=== PATIENT | female | born 1990 | race Caucasian/White ===

== ENCOUNTER 2017-11-29 11:23 | Outpatient (CLI) | payer MEDICAID | END 2017-11-29 13:57 | disposition home or self-care (01) | LOC: OBT 11:23 → L-D 11:23 → OBT 13:57 | DX: O36.8130 Decreased fetal movements, third trimester, not applicable or unspecified (principal); Z3A.37 37 weeks gestation of pregnancy | CPT/HCPCS: 76815; 76818 ==

== ENCOUNTER 2017-12-24 07:48 | Inpatient (IN) | payer MEDICAID ==
[2017-12-24] MEDS ORDERED: OXYTOCIN 30 UNITS/LR 500 ML IV ×2 (09:00→11:30)
[2017-12-24] MEDS ORDERED: BUTORPHANOL 2 MG INJ IV (09:00)
[2017-12-24] MEDS ORDERED: LIDOCAINE 1% (MPF) 30 ML INJ INJ (09:00)
[2017-12-24] MEDS ORDERED: MISOPROSTOL 200 MCG TAB PR (09:00)
[2017-12-24] MEDS ORDERED: METHYLERGONOVINE 0.2 MG INJ IM (09:00)
[2017-12-24] MEDS ORDERED: CARBOPROST 250 MCG INJ IM (09:00)
[2017-12-24] MEDS: LACTATED RINGER'S 1,000 ML IV* ×2 (09:18→11:08)
[2017-12-24 09:22] LABS: ADD MAN DIFF? NO
[2017-12-24] MEDS: AMPICILLIN 2 GM/NS (PMX) 100 ML IV (09:22)
[2017-12-24 09:24] LABS: BASOPHILS % 0.3 % (0.0-2.0); EOSINOPHILS # 0.1 10^3/ul (0.0-0.5); EOSINOPHILS % 1.5 % (0.0-7.0); HEMATOCRIT 31.4 % (37.0-47.0); HEMOGLOBIN 10.1 g/dl (12.0-16.0); LYMPHOCYTES # 1.4 10^3/ul (0.8-2.9); LYMPHOCYTES % 23.3 % (15.0-51.0); MEAN CORPUSCULAR HEMOGLOBIN 25.3 pg (29.0-33.0); MEAN CORPUSCULAR HGB CONC 32.2 g/dl (32.0-37.0); MEAN CORPUSCULAR VOLUME 78.5 fl (82.0-101.0); MEAN PLATELET VOLUME 11.4 fl (7.4-10.4); MONOCYTE # 0.6 10^3/ul (0.3-0.9); MONOCYTES % 10.2 % (0.0-11.0); NEUTROPHIL # 3.8 10^3/ul (1.6-7.5); PLATELET COUNT 204 10^3/UL (140-415); RED CELL DISTRIBUTION WIDTH 14.6 % (11.5-14.5)
[2017-12-24 09:24] LABS: WHITE BLOOD COUNT 5.9 10^3/ul (4.8-10.8)
[2017-12-24 09:44] LABS: INR 0.88; PT RATIO 0.9
[2017-12-24 09:46] LABS: PARTIAL THROMBOPLASTIN TIME 26.5 Sec (25.0-35.0)
[2017-12-24] MEDS ORDERED: FENTAnyl 2MCG/ML-ROPIV 0.2% 100 ML (11:00)
[2017-12-24] MEDS ORDERED: ONDANSETRON 4 MG INJ IV ×2 (11:30→17:30)
[2017-12-24] MEDS ORDERED: FENTAnyl 2MCG/ML-ROPIV 0.2% 100 ML BAG EPI (11:30)
[2017-12-24] MEDS: AMPICILLIN 1 GM/NS (PMX) 50 ML IV (14:03)
[2017-12-24] MEDS: OXYTOCIN 30 UNITS/LR 500 ML IV ×3 (15:35→17:24)
[2017-12-24 15:50] LABS: RAPID PLASMA REAGIN NONREACTIVE (NR)
[2017-12-24 16:50] LABS: HEPATITIS B SURFACE ANTIGEN NEGATIVE (NEGATIVE)
[2017-12-24] MEDS ORDERED: DIBUCAINE 1% 30 GM OINT PR (17:30)
[2017-12-24] MEDS ORDERED: HYDROCODONE/APAP (5/325) TAB PO ×2 (17:30)
[2017-12-24] MEDS ORDERED: ACETAMINOPHEN 325 MG TAB PO (17:30)
[2017-12-24] MEDS ORDERED: OXYCODONE/ASPIRIN (4.88/325) TAB PO ×2 (17:30)
[2017-12-24] MEDS: WITCH HAZEL/GLYCERIN PAD PR (17:55)
[2017-12-24] MEDS: BENZOCAINE 20% 56 ML SPRAY TOP (17:55)
[2017-12-24] MEDS: LANOLIN 7 GM TUBE TOP (17:56)
[2017-12-24] MEDS: IBUPROFEN 600 MG TAB PO ×2 (17:56→18:00)
[2017-12-24] MEDS: SENNA/DOCUSATE NA (8.6MG/50MG) TAB PO (21:21)
[2017-12-25] MEDS: IBUPROFEN 600 MG TAB PO ×5 (00:51→23:30)
[2017-12-25 06:54] LABS: ADD MAN DIFF? NO
[2017-12-25 07:10] LABS: BASOPHILS % 0.2 % (0.0-2.0); EOSINOPHILS # 0.2 10^3/ul (0.0-0.5); EOSINOPHILS % 1.8 % (0.0-7.0); HEMATOCRIT 26.2 % (37.0-47.0); HEMOGLOBIN 8.2 g/dl (12.0-16.0); LYMPHOCYTES # 1.9 10^3/ul (0.8-2.9); MEAN CORPUSCULAR HEMOGLOBIN 24.4 pg (29.0-33.0); MEAN CORPUSCULAR HGB CONC 31.3 g/dl (32.0-37.0); MEAN PLATELET VOLUME 12.1 fl (7.4-10.4); MONOCYTE # 0.7 10^3/ul (0.3-0.9); MONOCYTES % 8.4 % (0.0-11.0); NEUTROPHIL # 5.7 10^3/ul (1.6-7.5); PLATELET COUNT 191 10^3/UL (140-415); RED BLOOD COUNT 3.36 10^6/ul (4.20-5.40); RED CELL DISTRIBUTION WIDTH 14.9 % (11.5-14.5)
[2017-12-25 07:10] LABS: WHITE BLOOD COUNT 8.5 10^3/ul (4.8-10.8)
[2017-12-25] MEDS: SENNA/DOCUSATE NA (8.6MG/50MG) TAB PO ×2 (09:19→21:22)
[2017-12-26] MEDS: IBUPROFEN 600 MG TAB PO ×2 (05:55→11:40)
[2017-12-26] MEDS: SENNA/DOCUSATE NA (8.6MG/50MG) TAB PO (09:34)
[2017-12-26] MEDS: MEASLES,MUMPS,RUBELLA VACCINE INJ SC* (09:35)
[2017-12-26 10:37] LABS: ADD MAN DIFF? NO
[2017-12-26 10:38] LABS: BASOPHILS % 0.3 % (0.0-2.0); EOSINOPHILS # 0.1 10^3/ul (0.0-0.5); EOSINOPHILS % 1.7 % (0.0-7.0); HEMATOCRIT 27.9 % (37.0-47.0); HEMOGLOBIN 8.7 g/dl (12.0-16.0); LYMPHOCYTES # 1.3 10^3/ul (0.8-2.9); LYMPHOCYTES % 18.5 % (15.0-51.0); MEAN CORPUSCULAR HEMOGLOBIN 24.8 pg (29.0-33.0); MEAN CORPUSCULAR HGB CONC 31.2 g/dl (32.0-37.0); MEAN CORPUSCULAR VOLUME 79.5 fl (82.0-101.0); MEAN PLATELET VOLUME 11.5 fl (7.4-10.4); MONOCYTE # 0.5 10^3/ul (0.3-0.9); MONOCYTES % 6.4 % (0.0-11.0); NEUTROPHIL # 5.2 10^3/ul (1.6-7.5); NEUTROPHILS % 72.3 % (39.0-77.0); PLATELET COUNT 203 10^3/UL (140-415); RED BLOOD COUNT 3.51 10^6/ul (4.20-5.40); RED CELL DISTRIBUTION WIDTH 15.4 % (11.5-14.5)
[2017-12-26 10:38] LABS: WHITE BLOOD COUNT 7.1 10^3/ul (4.8-10.8)
== END 2017-12-26 12:55 | disposition home or self-care (01) | DRG 775 ==
LOC: L-D 07:48 → PP1 16:50
PROVIDERS: Obstetrics & Gynecology
PROC: 10E0XZZ Delivery of Products of Conception, External Approach (ICD-10-PCS; principal; 2017-12-24 08:00)
PROC: 0HQ9XZZ Repair Perineum Skin, External Approach (ICD-10-PCS; 2017-12-24 08:00)
PROC: 4A1HXCZ Monitoring of Products of Conception, Cardiac Rate, External Approach (ICD-10-PCS; 2017-12-24 08:00)
DX: O48.0 Post-term pregnancy (principal); O70.0 First degree perineal laceration during delivery; O69.81X0 Labor and delivery complicated by cord around neck, without compression, not applicable or unspecified; Z3A.40 40 weeks gestation of pregnancy; Z37.0 Single live birth
CPT/HCPCS: 62319; 85025; 85610; 85730; 86592; 86850; 86900; 86901; 87340; 99464